=== PATIENT | male | born 1945 | race Caucasian/White ===

== ENCOUNTER 2024-01-30 19:17 | Inpatient (IN) | payer MEDICARE, OTHER ==
--- NOTE | 2024-01-30 19:27 | ERPHSYRPT ---
- History of Present Illness Time Seen by Provider: 01/30/24 19:27 Source: patient, family Exam Limitations: no limitations Physician History: This is a 78-year-old morbidly obese white male patient has chronic venous stasis disease of bilateral lower extremities with ulcerations present. Patient does see plant controls specialist Dr. Musa. Patient has multiple medical issues including CVA approxi-2 months ago, coronary disease, atrial fibrillation and is on Xarelto furosemide and spironolactone. Patient lives alone and has recently been intermittently confused. Patient has pain in both lower extremities but the right is worse than the left. He is not having any chest pain at this time. His room air oxygen saturation level is 99% and he has a normal blood pressure. Family is concerned that the patient is sundowning and/or has dementia. Patient does have multiple medical issues we will perform a workup. They would like him, if possible, to be placed in the hospital and worked up for possible [place] [facility] placement. He has had some abdominal pain as well and has a CT scan of the abdomen pelvis arranged on an outpatient basis next week. Patient typically has pressure dressings from bilateral feet proximally to below the knee. However, patient family member states that he takes them off and is noncompliant. Occurred: other (Chronic) Quality: aching, throbbing Severity of Pain-Max: mild (Moderate) Severity of Pain-Current: mild (Moderate) Lower Extremities Pain: leg: bilateral (Low the knee), foot: bilateral, ankle: bilateral Modifying Factors: Improves With: movement Allergies/Adverse Reactions: amiodarone Allergy (Verified 01/30/24 19:32) dronedarone Allergy (Verified 01/30/24 19:32) icosapent ethyl Allergy (Verified 01/30/24 19:32) nifedipine Allergy (Verified 01/30/24 19:32) [id number] Reductase Inhibitor Allergy (Verified 01/30/24 19:32) Home Medications: Acetaminophen 325 mg [Tylenol 325 mg] 650 mg PO Q4HPRN PRN 01/30/24 [History] Acetaminophen with Codeine [Acetaminophen-Cod #3 Tablet] 1 tab PO QID PRN 0 01/30/24 [History] Allopurinol 300 mg [Zyloprim 300 mg] 300 mg PO DAILY 01/30/24 [History] Aspirin 81 gm Chew [Baby Aspirin 81 mg Chew] 81 mg PO DAILY 01/30/24 [History] Cyanocobalamin (Vitamin B-12) [Vitamin B-12] 1,000 mcg SL DAILY 01/30/24 [History] Empagliflozin [Jardiance] 10 mg PO DAILY 01/30/24 [History] Levothyroxine Sodium 75 Mcg [Synthroid 75 Mcg] 75 mcg PO DAILY 01/30/24 [History] Metoprolol Succinate 50 mg [Toprol Xl 50 MG] 50 mg PO DAILY 01/30/24 [History] OLANZapine [Zyprexa] 5 mg PO HS 01/30/24 [History] Ondansetron [Ondansetron Odt ] 4 mg PO Q6H PRN 01/30/24 [History] Rivaroxaban [Xarelto] 20 mg PO DAILY 01/30/24 [History] Sacubitril/Valsartan [Entresto 49 mg-51 mg Tablet] 1 each PO DAILY 01/30/24 [History] Spironolactone 25 mg PO DAILY 01/30/24 [History] Torsemide 20 mg [Demadex 20 mg] 20 mg PO DAILY 01/30/24 [History] Travel Risk - International Travel Have you traveled outside of the country in past 3 weeks: No - Emerging Infectious Disease Are you exhibiting symptoms associated with any current EIDs: No - Review of Systems Constitutional: No Symptoms Eyes: No Symptoms Ears, Nose, & Throat: No Symptoms Respiratory: No Symptoms Cardiac: No Symptoms Abdominal/Gastrointestinal: No Symptoms Genitourinary Symptoms: No Symptoms Musculoskeletal: No Symptoms, Other (Chronic bilateral lower extremity venous stasis disease with ulcerations and pain) Skin: Other (See above) Neurological: No Symptoms Psychological: No Symptoms Endocrine: No Symptoms Hematologic/Lymphatic: No Symptoms Immunological/Allergic: No Symptoms All Other Systems: Reviewed and Negative - Past Medical History Pertinent Past Medical History: Yes - Nursing Vital Signs Nursing Vital Signs: Initial Vital Signs Temperature 96.9 F 01/30/24 19:33 Pulse Rate 130 H 01/30/24 19:33 Respiratory Rate 22 01/30/24 19:33 Blood Pressure 96/72 01/30/24 19:33 O2 Sat by Pulse Oximetry 98 01/30/24 19:33 Pain Scale Pain Intensity 7 - Physical Exam General Appearance: no apparent distress, alert, obese Eyes, Ears, Nose, Throat Exam: normal ENT inspection, moist mucous membranes Neck Exam: normal inspection, non-tender, supple, full range of motion Cardiovascular/Respiratory Exam: chest non-tender, no respiratory distress Gastrointestinal/Abdominal Exam: non-tender Back Exam: normal inspection, normal range of motion, No CVA tenderness, No vertebral tenderness Hips Exam: bilateral: normal range of motion, no evidence of injury Legs Exam: bilateral leg: soft tissue tenderness (Bilateral below the knee), swelling (Bilateral below the knee), other (Chronic venous stasis disease bilate rally with ulcerations) Knees Exam: bilateral knee: non-tender, normal inspection, normal range of motion, no evidence of injury Ankle Exam: bilateral ankle: soft tissue tenderness, swelling Foot Exam: bilateral foot: bone tenderness (Digit tenderness), soft tissue tenderness, swelling Neuro/Tendon Exam: normal motor functions, normal tendon functions, responds to pain, no evidence tendon injury Mental Status Exam: alert, oriented x 3, cooperative Skin Exam: other (The above) SpO2 Interpretation: normal O2 Delivery: Room Air - Course Nursing assessment & vital signs reviewed: Yes EKG Interpreted by Me: RATE (106), Other (Reticular paced complexes. There is nonspecific intraventricular conduction delay. QTc is 547. I do not appreciate any acute ischemia) Ordered Tests: Active Orders 24 hr Category Date Time Status Clean Catch Urine Specimen STAT Care 01/30/24 22:28 Active EKG-ER Only STAT Care 01/30/24 20:12 Active EKG-ER Only STAT Care 01/30/24 23:43 Active IV Insertion STAT Care 01/30/24 20:12 Active ABDOMEN AND PELVIS W/0 CONTRAS [CT] Stat Exams 01/30/24 21:14 Taken CHEST 1 VIEW (PORTABLE) Stat Exams 01/30/24 21:14 Taken CBC W DIFF Stat Lab 01/30/24 20:30 Completed CMP Stat Lab 01/30/24 20:30 Completed CULTURE,WOUND Stat Lab 01/30/24 20:42 Received Lactic Acid Stat Lab 01/30/24 20:25 Completed NT PRO BNPII Stat Lab 01/30/24 20:30 Completed TROPONIN Q4H Lab 01/30/24 20:30 Completed TROPONIN Q4H Lab 01/30/24 23:30 Completed TROPONIN Q4H Lab 01/31/24 04:15 Ordered TSH [TSH, 3RD Generation] Stat Lab 01/30/24 20:25 Completed Urine Triage Profile Stat Lab 01/30/24 22:58 Completed Medication Summary Discontinued Medications Generic Name Dose Route Start Last Admin Trade Name Genesis HOLLAND Reason Stop Dose Admin Acetaminophen 650 mg 01/30/24 23:26 01/30/24 23:30 Acetaminophen 325 Mg Tablet PO 01/30/24 23:27 650 mg STAT ONE Administration Acetaminophen Confirm 01/30/24 23:29 Acetaminophen 325 Mg Tablet Administered 01/30/24 23:30 Dose 650 mg .ROUTE .STK-MED ONE Bumetanide 1 mg 01/30/24 22:14 01/30/24 22:29 Bumetanide 0.25 Mg/Ml 4ml Vial IV 01/30/24 22:15 1 mg STAT ONE Administration Bumetanide Confirm 01/30/24 22:27 Bumetanide 0.25 Mg/Ml 4ml Vial Administered 01/30/24 22:28 Dose 1 mg .ROUTE .STK-MED ONE Ceftriaxone Sodium 1 gm in 100 mls @ 200 mls/hr 01/30/24 22:14 01/30/24 23:17 Rocephin 1 Gm / 100 Ml Nacl IV 01/30/24 22:43 Infused STAT ONE Infusion Ceftriaxone Sodium Confirm 01/30/24 22:28 Rocephin 1 Gm / 100 Ml Nacl Administered 01/30/24 22:29 Dose 1 gm in 100 mls @ ud IV .STK-MED ONE Metoprolol Tartrate 2.5 mg 01/30/24 22:35 01/30/24 22:48 Metoprolol Tartrate 5 Mg/5 Ml Vial IV 01/30/24 22:36 2.5 mg STAT ONE Administration Metoprolol Tartrate Confirm 01/30/24 22:44 Metoprolol Tartrate 5 Mg/5 Ml Vial Administered 01/30/24 22:45 Dose 5 mg IV .STK-MED ONE Ondansetron HCl 4 mg 01/30/24 20:12 01/30/24 20:37 Ondansetron Hcl 4 Mg/2 Ml Vial IV 01/30/24 20:13 4 mg STAT ONE Administration Ondansetron HCl Confirm 01/30/24 20:37 Ondansetron Hcl 4 Mg/2 Ml Vial Administered 01/30/24 20:38 Dose 4 mg .ROUTE .K-MED ONE Lab/Rad Data: Laboratory Result Diagrams 01/30/24 20:30 01/30/24 20:30 Laboratory Results 01/30/24 01/30/24 01/30/24 Range/Units 23:30 22:58 20:30 WBC (4.23-9.07) x10^3/uL RBC (4.63-6.08) x10^6/uL Hgb (13.7-17.5) g/dL Hct (40.1-51.0) % MCV (79.0-92.2) fL MCH (25.7-32.2) pg MCHC (32.3-36.5) g/dL RDW (11.6-14.4) % Plt Count (163-337) x10^3/uL MPV (9.4-12.4) fL Gran % (34.0-67.9) % Immature Gran % (Auto) (0.001-0.429) % Nucleat RBC Rel Count (0.00-0.2) % Eos # (Auto) (0.04-0.54) x10^3/uL Immature Gran # (Auto) (0.001-0.031) x10^3u/L Absolute Lymphs (auto) (1.32-3.57) x10^3/uL Absolute Monos (auto) (0.30-0.82) x10^3/uL Absolute Nucleated RBC (0.00-0.012) x10^3u/L Lymphocytes % (21.8-53.1) % Monocytes % (5.3-12.2) % Eosinophils % (0.8-7.0) % Basophils % (0.2-1.2) % Absolute Granulocytes (1.78-5.38) x10^3/uL Basophils # (0.01-0.08) x10^3/uL Sodium (135-145) mmol/L Potassium (3.5-5.1) mmol/L Chloride (98-107) mmol/L Carbon Dioxide (22-30) mmol/L Anion Gap (5-15) MEQ/L BUN (9-20) mg/dL Creatinine (0.66-1.25) mg/dL Estimated GFR ML/MIN Glucose (74-106) mg/dL Lactic Acid (0.4-2.0) Calcium (8.4-10.2) mg/dL Total Bilirubin (0.2-1.3) mg/dL AST (17-59) U/L ALT (0-50) U/L Alkaline Phosphatase (38-126) U/L Troponin I 0.072 H* 0.063 H* (0.000-0.033) ng/mL NT-Pro-B Natriuret Pep 4570 (<300) pg/mL Serum Total Protein (6.3-8.2) g/dL Albumin (3.5-5.0) g/dL Free T4 (0.78-2.19) ng/dL TSH 3rd Generation (0.470-4.680) mIU/L Urine Opiates Level NEGATIVE (NEGATIVE) Ur Methadone NEGATIVE (NEGATIVE) Urine Barbiturates NEGATIVE (NEGATIVE) Ur Phencyclidine (PCP) NEGATIVE (NEGATIVE) Urine Amphetamine NEGATIVE (NEGATIVE) U Benzodiazepine Level NEGATIVE (NEGATIVE) Urine Cocaine NEGATIVE (NEGATIVE) Urine Marijuana (THC) NEGATIVE (NEGATIVE) Slides for Path Review 01/30/24 01/30/24 01/30/24 Range/Units 20:30 20:30 20:25 WBC 5.4 (4.23-9.07) x10^3/uL RBC 5.34 (4.63-6.08) x10^6/uL Hgb 14.0 (13.7-17.5) g/dL Hct 44.9 (40.1-51.0) % MCV 84.1 (79.0-92.2) fL MCH 26.2 (25.7-32.2) pg MCHC 31.2 L (32.3-36.5) g/dL RDW 17.0 H (11.6-14.4) % Plt Count 139 L (163-337) x10^3/uL MPV 10.5 (9.4-12.4) fL Gran % 77.9 H (34.0-67.9) % Immature Gran % (Auto) 0.4 (0.001-0.429) % Nucleat RBC Rel Count 0.0 (0.00-0.2) % Eos # (Auto) 0.13 (0.04-0.54) x10^3/uL Immature Gran # (Auto) 0.02 (0.001-0.031) x10^3u/L Absolute Lymphs (auto) 0.49 L (1.32-3.57) x10^3/uL Absolute Monos (auto) 0.52 (0.30-0.82) x10^3/uL Absolute Nucleated RBC 0.00 (0.00-0.012) x10^3u/L Lymphocytes % 9.0 L (21.8-53.1) % Monocytes % 9.6 (5.3-12.2) % Eosinophils % 2.4 (0.8-7.0) % Basophils % 0.7 (0.2-1.2) % Absolute Granulocytes 4.22 (1.78-5.38) x10^3/uL Basophils # 0.04 (0.01-0.08) x10^3/uL Sodium 141 (135-145) mmol/L Potassium 4.7 (3.5-5.1) mmol/L Chloride 107 (98-107) mmol/L Carbon Dioxide 28 (22-30) mmol/L Anion Gap 11.2 (5-15) MEQ/L BUN 28 H (9-20) mg/dL Creatinine 1.45 H (0.66-1.25) mg/dL Estimated GFR 49.6 ML/MIN Glucose 94 (74-106) mg/dL Lactic Acid (0.4-2.0) Calcium 9.1 (8.4-10.2) mg/dL Total Bilirubin 1.40 H (0.2-1.3) mg/dL AST 38 (17-59) U/L ALT 26 (0-50) U/L Alkaline Phosphatase 101 (38-126) U/L Troponin I (0.000-0.033) ng/mL NT-Pro-B Natriuret Pep (<300) pg/mL Serum Total Protein 7.0 (6.3-8.2) g/dL Albumin 3.8 (3.5-5.0) g/dL Free T4 1.03 (0.78-2.19) ng/dL TSH 3rd Generation (0.470-4.680) mIU/L Urine Opiates Level (NEGATIVE) Ur Methadone (NEGATIVE) Urine Barbiturates (NEGATIVE) Ur Phencyclidine (PCP) (NEGATIVE) Urine Amphetamine (NEGATIVE) U Benzodiazepine Level (NEGATIVE) Urine Cocaine (NEGATIVE) Urine Marijuana (THC) (NEGATIVE) Slides for Path Review YES 01/30/24 01/30/24 Range/Units 20:25 20:25 WBC (4.23-9.07) x10^3/uL RBC (4.63-6.08) x10^6/uL Hgb (13.7-17.5) g/dL Hct (40.1-51.0) % MCV (79.0-92.2) fL MCH (25.7-32.2) pg MCHC (32.3-36.5) g/dL RDW (11.6-14.4) % Plt Count (163-337) x10^3/uL MPV (9.4-12.4) fL Gran % (34.0-67.9) % Immature Gran % (Auto) (0.001-0.429) % Nucleat RBC Rel Count (0.00-0.2) % Eos # (Auto) (0.04-0.54) x10^3/uL Immature Gran # (Auto) (0.001-0.031) x10^3u/L Absolute Lymphs (auto) (1.32-3.57) x10^3/uL Absolute Monos (auto) (0.30-0.82) x10^3/uL Absolute Nucleated RBC (0.00-0.012) x10^3u/L Lymphocytes % (21.8-53.1) % Monocytes % (5.3-12.2) % Eosinophils % (0.8-7.0) % Basophils % (0.2-1.2) % Absolute Granulocytes (1.78-5.38) x10^3/uL Basophils # (0.01-0.08) x10^3/uL Sodium (135-145) mmol/L Potassium (3.5-5.1) mmol/L Chloride (98-107) mmol/L Carbon Dioxide (22-30) mmol/L Anion Gap (5-15) MEQ/L BUN (9-20) mg/dL Creatinine (0.66-1.25) mg/dL Estimated GFR ML/MIN Glucose (74-106) mg/dL Lactic Acid 1.6 (0.4-2.0) Calcium (8.4-10.2) mg/dL Total Bilirubin (0.2-1.3) mg/dL AST (17-59) U/L ALT (0-50) U/L Alkaline Phosphatase (38-126) U/L Troponin I (0.000-0.033) ng/mL NT-Pro-B Natriuret Pep (<300) pg/mL Serum Total Protein (6.3-8.2) g/dL Albumin (3.5-5.0) g/dL Free T4 (0.78-2.19) ng/dL TSH 3rd Generation 7.834 H (0.470-4.680) mIU/L Urine Opiates Level (NEGATIVE) Ur Methadone (NEGATIVE) Urine Barbiturates (NEGATIVE) Ur Phencyclidine (PCP) (NEGATIVE) Urine Amphetamine (NEGATIVE) U Benzodiazepine Level (NEGATIVE) Urine Cocaine (NEGATIVE) Urine Marijuana (THC) (NEGATIVE) Slides for Path Review - Progress Progress: improved, pain not gone completely Progress Note: 01/30/24 20:23 My medical decision making and the assignment of moderate to high complexity is based on review of the patient's past medical history, review of the patient's medication list, reviewed patient drug allergy list, history present illness and physical findings on examination. The workup in this patient includes placement of intravenous line, chest x-ray, CT scan of the abdomen pelvis, CBC, CMP, blood cultures, wound cultures, twelve-lead EKG, BNP, troponin level. Differential diagnosis includes but is not limited to chronic venous stasis disease with ulcerations, bilateral lower extremity cellulitis, CHF 01/30/24 22:36 I interpreted the patient's laboratory data results. The patient has significant elevated BNP of over 4500. He likely has CHF. His troponin level is minimally elevated at 0.063 and likely secondary to right heart strain secondary to CHF. The preliminary chest x-ray report was interpreted by me. There is evidence of increased vascular markings as well as cardiomegaly consistent with CHF. CT scan of the abdomen pelvis without contrast was performed and was interpreted by the radiologist. I reviewed the impression. The impression states cardiomegaly. Bilateral pleural effusions with diffuse anasarca favoring CHF. Small perihepatic fluid which may be related to the CHF. Sigmoid diverticulosis and multilevel DDD 01/30/24 23:55 The repeat, second twelve-lead EKG was performed on 01/30/2024 4809. The heart rate is 103 bpm ventricular paced complexes. QTc is 532. There is no evidence of any acute ischemia. Discussed with DrMiko: Ladi Counseled pt/family regarding: lab results, diagnosis Medical Desision Making - Discussion of managment Care discussed with:: hospitalist Reviewed:: Test results, Need for additional workup Agreed on:: Treatment plan, decision to admit Will see patient: in hospital - Diagnostic Testing Diagnostic test were ordered, analyzed, and reviewed by me: Yes Radiological Interpretation: Reviewed by me, Teleradiologist Report - Risk of complications The pt has a high risk of morbidity or mortality based on: Decision regarding hospitilization or escalation of hosp level of care - Departure Departure Disposition: In-patient Admission Clinical Impression: CHF exacerbation, Chronic cutaneous venous stasis ulcer, Shortness of breath, Elevated troponin Condition: Fair Critical Care Time: No Referrals: MIGEL SYED [Primary Care Provider] - Follow up/PCP as directed Instructions: Heart Failure
[2024-01-30 20:35] LABS: Absolute Neutrophil Ct (ANC) 4.22 x10^3/uL (1.78-5.38); BASOPHIL % 0.7 % (0.2-1.2); Basophil (Absolute #) 0.04 x10^3/uL (0.01-0.08); Eosinophil % 2.4 % (0.8-7.0); Eosinophil (Absolute #) 0.13 x10^3/uL (0.04-0.54); Hematocrit 44.9 % (40.1-51.0); IMMATURE GRAN # 0.02 x10^3u/L (0.001-0.031); IMMATURE GRAN % 0.4 % (0.001-0.429); Lymphocyte (Absolute #) 0.49 x10^3/uL (1.32-3.57); Mean Cell Volume 84.1 fL (79.0-92.2); Mean Corpuscular Hemoglobin 26.2 pg (25.7-32.2); Mean Corpuscular Hgb Concent. 31.2 g/dL (32.3-36.5); Mean Platelet Volume 10.5 fL (9.4-12.4); Monocyte (Absolute #) 0.52 x10^3/uL (0.30-0.82); Monocytes % 9.6 % (5.3-12.2); Neutrophil % 77.9 % (34.0-67.9); Platelet Count 139 x10^3/uL (163-337); Red Blood Count 5.34 x10^6/uL (4.63-6.08); White Blood Count 5.4 x10^3/uL (4.23-9.07)
[2024-01-30] MEDS: Zofran 4 MG/2 ML VIAL IV ONE (20:37)
[2024-01-30] MEDS ORDERED: Zofran 4 MG/2 ML VIAL ONE (20:37)
[2024-01-30 20:50] LABS: ALBUMIN 3.8 g/dL (3.5-5.0); ANION GAP 11.2 MEQ/L (5-15); BILIRUBIN,TOTAL 1.4 mg/dL (0.2-1.3); Calcium 9.1 mg/dL (8.4-10.2); Creatinine 1 1.45 mg/dL (0.66-1.25); EST GLOMERULAR FILTRATION RATE 49.6 ML/MIN; Potassium 4.7 mmol/L (3.5-5.1)
[2024-01-30 21:23] LABS: TROPONIN 0.063 ng/mL (0.000-0.033)
[2024-01-30 21:35] LABS: Slide Review 1 YES
[2024-01-30] MEDS ORDERED: BUMEX 1 MG ONE (22:27)
[2024-01-30] MEDS ORDERED: ROCEPHIN 1 GM / 100 ML NaCl 1 GM/100 ML IVPB IV ONE (22:28)
[2024-01-30] MEDS: BUMEX 1 MG IV ONE (22:29)
[2024-01-30] MEDS: ROCEPHIN 1 GM / 100 ML NaCl 1 GM/100 ML IVPB IV ONE (22:30)
[2024-01-30] MEDS ORDERED: LOPRESSOR INJECTION IV ONE (22:44)
[2024-01-30] MEDS: LOPRESSOR INJECTION IV ONE (22:48)
[2024-01-30] MEDS ORDERED: TYLENOL 325 MG ONE (23:29)
[2024-01-30] MEDS: TYLENOL 325 MG PO ONE (23:30)
[2024-01-30 23:34] LABS: Amphetamine,Urine NEGATIVE (NEGATIVE); Barbiturate,Urine NEGATIVE (NEGATIVE); Benzodiazepine,Urine NEGATIVE (NEGATIVE); Cocaine,Urine NEGATIVE (NEGATIVE); Methadone,Urine NEGATIVE (NEGATIVE); Opiate,Urine NEGATIVE (NEGATIVE); PCP,Urine NEGATIVE (NEGATIVE); THC,Urine NEGATIVE (NEGATIVE)
--- NOTE | 2024-01-31 03:08 | PCM.HP ---
History of Present Illness - Chief Complaint Chief Complaint: shortness of breath, leg swelling Date: 01/31/24 History of Present Illness: 78 y/o M with h/o HFrEF, paroxysmal A-fib, recent CVA, and venous stasis dermatitis with ulcers, presents with worsening dyspnea and leg edema. Patient states he was diagnosed with idiopathic cardiomyopathy in 1999, with an EF as low as 5% at one point and was evaluated for heart transplant, although his EF has recovered somewhat from that point. Today he presents complaining of one week of progressive dyspnea, associated with worsening leg edema causing more serous weeping from her legs, as well as associated orthopnea and early satiety with mild constant nausea. He denies PND, chest pain, numbness, diaphoresis, fevers, sore throat, or dysuria. Patient states has been compliant with medications and diet. However, patient lives alone, and was brought in after family visited and noted that patient was not doing well, with some signs of cognitive impairment. They brought in his medication bottles, which showed that though there were prescribed three months ago they were still almost full. He was prescribed Keflex by his covering and lining supervisor 10 days ago but only one pill was used. He also had an Roma boot placed but his covering and lining supervisor last week, but the patient cut it off himself. His family notes that he has been more forgetful, and they are interested in looking for more support for the patient, including possible placement. - Review of Systems Constitutional: No Fever, No Fatigue, No Weakness Ears, Nose, & Throat: No Throat Pain Respiratory: Orthopnea, Short Of Breath, No Cough Cardiac: Edema, Orthopnea, No Chest Pain, No Palpitations, No Syncope Abdominal/Gastrointestinal: Nausea, No Abdominal Pain, No Vomiting, No Diarrhea Genitourinary Symptoms: No Dysuria, No Frequency Skin: Rash, Other (serous drainage from legs, bilateral leg erythema) Medications & Allergies Home Medications: Home Medication List Acetaminophen 325 mg [Tylenol 325 mg] 650 mg PO Q4HPRN PRN 01/30/24 [ History Confirmed 01/30/24] Acetaminophen with Codeine [Acetaminophen-Cod #3 Tablet] 1 tab PO QID PRN 01/30/24 [History Confirmed 01/30/24] Allopurinol 300 mg [Zyloprim 300 mg] 300 mg PO DAILY 01/30/24 [History Confirmed 01/30/24] Aspirin 81 gm Chew [Baby Aspirin 81 mg Chew] 81 mg PO DAILY 01/30/24 [History Confirmed 01/30/24] Cyanocobalamin (Vitamin B-12) [Vitamin B-12] 1,000 mcg SL DAILY 01/30/24 [History Confirmed 01/30/24] Empagliflozin [Jardiance] 10 mg PO DAILY 01/30/24 [History Confirmed 01/30/24] Levothyroxine Sodium 75 Mcg [Synthroid 75 Mcg] 75 mcg PO DAILY 01/30/24 [History Confirmed 01/30/24] Metoprolol Succinate 50 mg [Toprol Xl 50 MG] 50 mg PO DAILY 01/30/24 [History Confirmed 01/30/24] OLANZapine [Zyprexa] 5 mg PO HS 01/30/24 [History Confirmed 01/30/24] Ondansetron [Ondansetron Odt ] 4 mg PO Q6H PRN 01/30/24 [History Confirmed 01/30/24] Rivaroxaban [Xarelto] 20 mg PO DAILY 01/30/24 [History Confirmed 01/30/24] Sacubitril/Valsartan [Entresto 49 mg-51 mg Tablet] 1 each PO DAILY 01/30/24 [History Confirmed 01/30/24] Spironolactone 25 mg PO DAILY 01/30/24 [History Confirmed 01/30/24] Torsemide 20 mg [Demadex 20 mg] 20 mg PO DAILY 01/30/24 [History Confirmed 01/30/24] Allergies/Adverse Reactions: Allergies Allergy/AdvReac Type Severity Reaction Status Date / Time amiodarone Allergy Verified 01/30/24 19:32 dronedarone Allergy Verified 01/30/24 19:32 icosapent ethyl Allergy Verified 01/30/24 19:32 nifedipine Allergy Verified 01/30/24 19:32 [id number] Reductase Allergy Verified 01/30/24 19:32 Inhibitor - Past Medical History Past Medical History: Yes Neurological History: Migraines, Stroke ENT History: No Pertinent History Cardiac History: Arrhythmia, Congestive Heart Failure, Deep Vein Thrombosis, High Cholesterol, Hypertension Respiratory History: CHF, Pneumonia Endocrine Medical History: Diabetes Type II, Hypothyroidism Musculoskelatal History: Arthritis GI Medical History: GERD, Hernia History: No Pertinent History Pyscho-Social History: Anxiety, Depression Male Reproductive Disorders: Prostate Problems Comment: cml leukemia, edopathic myocardia, gout, restless leg sydrome - Past Surgical History Past Surgical History: Yes Neuro Surgical History: No Pertinent History Cardiac History: Cardiac Catheterization, Internal Defibrillator, Pacemaker Respiratory Surgery: No Pertinent History GI Surgical History: Hernia Repair Genitourinary Surgical Hx: No Pertinent History Musculskeletal Surgical Hx: Orthopedic Surgery Male Surgical History: No Pertinent History Other Surgical History: carpal tunnel, cardiac ablation, left cubital tunnel release and ulnar nerve at wrist, rt total knee Significant Family History: no pertinent family hx - Social History Smoking Status: Never smoker Exposure to second hand smoke: No Alcohol: None Drug Use: none - Social Determinants of Health Will the patient participate in the screening: Yes Do you worry about a steady place to live?: No Do you have any problems with any of the following?: No known problems In the past 12 months,have you had to go without utilities?: No Have you or anyone in your house had to go without enough: No Transportation Issues: No Has anyone in your support network made you feel unsafe?: No - Physical Exam Vital Signs: Vital Signs - 24 hr Temp Pulse Resp BP BP Pulse Ox 01/31/24 02:47 97.1 F 54 L 20 136/84 97 01/31/24 00:03 95 H 22 100/67 95 01/31/24 00:01 113 H 17 83/71 96 01/30/24 23:43 105 H 23 112/81 96 01/30/24 23:42 104 H 19 94 L 01/30/24 23:40 105 H 14 01/30/24 23:31 110 H 18 01/30/24 23:06 106 H 22 108/76 96 01/30/24 23:02 109 H 18 01/30/24 22:30 101 H 15 118/83 97 01/30/24 22:00 120 H 20 119/59 97 01/30/24 21:31 115 H 24 111/79 100 01/30/24 21:10 125 H 24 109/78 99 01/30/24 20:50 120 H 15 99 01/30/24 20:40 115 H 24 95 01/30/24 20:31 127 H 14 95 01/30/24 20:00 110 H 21 127/82 97 01/30/24 19:33 96.9 F 130 H 22 96/72 98 GENERAL: Sitting up in chair in no acute distress CV: regular rate and rhythm, no murmurs, pitting edema above knees bilaterally PULM: Clear to auscultation bilaterally, no work of breathing, on room air ABD: distended but non-tender SKIN: bilateral distal legs with erythema, with serous diffuse weeping, and left perez with shallow clean-based ulcer. Results - Labs Lab/Micro Results: Lab Results-Last 24 Hours 01/30/24 01/30/24 01/30/24 Range/Units 20:25 20:25 20:25 WBC (4.23-9.07) x10^3/uL RBC (4.63-6.08) x10^6/uL Hgb (13.7-17.5) g/dL Hct (40.1-51.0) % MCV (79.0-92.2) fL MCH (25.7-32.2) pg MCHC (32.3-36.5) g/dL RDW (11.6-14.4) % Plt Count (163-337) x10^3/uL MPV (9.4-12.4) fL Gran % (34.0-67.9) % Immature Gran % (Auto) (0.001-0.429) % Nucleat RBC Rel Count (0.00-0.2) % Eos # (Auto) (0.04-0.54) x10^3/uL Immature Gran # (Auto) (0.001-0.031) x10^3u/L Absolute Lymphs (auto) (1.32-3.57) x10^3/uL Absolute Monos (auto) (0.30-0.82) x10^3/uL Absolute Nucleated RBC (0.00-0.012) x10^3u/L Lymphocytes % (21.8-53.1) % Monocytes % (5.3-12.2) % Eosinophils % (0.8-7.0) % Basophils % (0.2-1.2) % Absolute Granulocytes (1.78-5.38) x10^3/uL Basophils # (0.01-0.08) x10^3/uL Sodium (135-145) mmol/L Potassium (3.5-5.1) mmol/L Chloride (98-107) mmol/L Carbon Dioxide (22-30) mmol/L Anion Gap (5-15) MEQ/L BUN (9-20) mg/dL Creatinine (0.66-1.25) mg/dL Estimated GFR ML/MIN Glucose (74-106) mg/dL Lactic Acid 1.6 (0.4-2.0) Calcium (8.4-10.2) mg/dL Total Bilirubin (0.2-1.3) mg/dL AST (17-59) U/L ALT (0-50) U/L Alkaline Phosphatase (38-126) U/L Troponin I (0.000-0.033) ng/mL NT-Pro-B Natriuret Pep (<300) pg/mL Serum Total Protein (6.3-8.2) g/dL Albumin (3.5-5.0) g/dL Free T4 1.03 (0.78-2.19) ng/dL TSH 3rd Generation 7.834 H (0.470-4.680) mIU/L Urine Opiates Level (NEGATIVE) Ur Methadone (NEGATIVE) Urine Barbiturates (NEGATIVE) Ur Phencyclidine (PCP) (NEGATIVE) Urine Amphetamine (NEGATIVE) U Benzodiazepine Level (NEGATIVE) Urine Cocaine (NEGATIVE) Urine Marijuana (THC) (NEGATIVE) Slides for Path Review 01/30/24 01/30/24 01/30/24 Range/Units 20:30 20:30 20:30 WBC 5.4 (4.23-9.07) x10^3/uL RBC 5.34 (4.63-6.08) x10^6/uL Hgb 14.0 (13.7-17.5) g/dL Hct 44.9 (40.1-51.0) % MCV 84.1 (79.0-92.2) fL MCH 26.2 (25.7-32.2) pg MCHC 31.2 L (32.3-36.5) g/dL RDW 17.0 H (11.6-14.4) % Plt Count 139 L (163-337) x10^3/uL MPV 10.5 (9.4-12.4) fL Gran % 77.9 H (34.0-67.9) % Immature Gran % (Auto) 0.4 (0.001-0.429) % Nucleat RBC Rel Count 0.0 (0.00-0.2) % Eos # (Auto) 0.13 (0.04-0.54) x10^3/uL Immature Gran # (Auto) 0.02 (0.001-0.031) x10^3u/L Absolute Lymphs (auto) 0.49 L (1.32-3.57) x10^3/uL Absolute Monos (auto) 0.52 (0.30-0.82) x10^3/uL Absolute Nucleated RBC 0.00 (0.00-0.012) x10^3u/L Lymphocytes % 9.0 L (21.8-53.1) % Monocytes % 9.6 (5.3-12.2) % Eosinophils % 2.4 (0.8-7.0) % Basophils % 0.7 (0.2-1.2) % Absolute Granulocytes 4.22 (1.78-5.38) x10^3/uL Basophils # 0.04 (0.01-0.08) x10^3/uL Sodium 141 (135-145) mmol/L Potassium 4.7 (3.5-5.1) mmol/L Chloride 107 (98-107) mmol/L Carbon Dioxide 28 (22-30) mmol/L Anion Gap 11.2 (5-15) MEQ/L BUN 28 H (9-20) mg/dL Creatinine 1.45 H (0.66-1.25) mg/dL Estimated GFR 49.6 ML/MIN Glucose 94 (74-106) mg/dL Lactic Acid (0.4-2.0) Calcium 9.1 (8.4-10.2) mg/dL Total Bilirubin 1.40 H (0.2-1.3) mg/dL AST 38 (17-59) U/L ALT 26 (0-50) U/L Alkaline Phosphatase 101 (38-126) U/L Troponin I 0.063 H* (0.000-0.033) ng/mL NT-Pro-B Natriuret Pep 4570 (<300) pg/mL Serum Total Protein 7.0 (6.3-8.2) g/dL Albumin 3.8 (3.5-5.0) g/dL Free T4 (0.78-2.19) ng/dL TSH 3rd Generation (0.470-4.680) mIU/L Urine Opiates Level (NEGATIVE) Ur Methadone (NEGATIVE) Urine Barbiturates (NEGATIVE) Ur Phencyclidine (PCP) (NEGATIVE) Urine Amphetamine (NEGATIVE) U Benzodiazepine Level (NEGATIVE) Urine Cocaine (NEGATIVE) Urine Marijuana (THC) (NEGATIVE) Slides for Path Review YES 01/30/24 01/30/24 Range/Units 22:58 23:30 WBC (4.23-9.07) x10^3/uL RBC (4.63-6.08) x10^6/uL Hgb (13.7-17.5) g/dL Hct (40.1-51.0) % MCV (79.0-92.2) fL MCH (25.7-32.2) pg MCHC (32.3-36.5) g/dL RDW (11.6-14.4) % Plt Count (163-337) x10^3/uL MPV (9.4-12.4) fL Gran % (34.0-67.9) % Immature Gran % (Auto) (0.001-0.429) % Nucleat RBC Rel Count (0.00-0.2) % Eos # (Auto) (0.04-0.54) x10^3/uL Immature Gran # (Auto) (0.001-0.031) x10^3u/L Absolute Lymphs (auto) (1.32-3.57) x10^3/uL Absolute Monos (auto) (0.30-0.82) x10^3/uL Absolute Nucleated RBC (0.00-0.012) x10^3u/L Lymphocytes % (21.8-53.1) % Monocytes % (5.3-12.2) % Eosinophils % (0.8-7.0) % Basophils % (0.2-1.2) % Absolute Granulocytes (1.78-5.38) x10^3/uL Basophils # (0.01-0.08) x10^3/uL Sodium (135-145) mmol/L Potassium (3.5-5.1) mmol/L Chloride (98-107) mmol/L Carbon Dioxide (22-30) mmol/L Anion Gap (5-15) MEQ/L BUN (9-20) mg/dL Creatinine (0.66-1.25) mg/dL Estimated GFR ML/MIN Glucose (74-106) mg/dL Lactic Acid (0.4-2.0) Calcium (8.4-10.2) mg/dL Total Bilirubin (0.2-1.3) mg/dL AST (17-59) U/L ALT (0-50) U/L Alkaline Phosphatase (38-126) U/L Troponin I 0.072 H* (0.000-0.033) ng/mL NT-Pro-B Natriuret Pep (<300) pg/mL Serum Total Protein (6.3-8.2) g/dL Albumin (3.5-5.0) g/dL Free T4 (0.78-2.19) ng/dL TSH 3rd Generation (0.470-4.680) mIU/L Urine Opiates Level NEGATIVE (NEGATIVE) Ur Methadone NEGATIVE (NEGATIVE) Urine Barbiturates NEGATIVE (NEGATIVE) Ur Phencyclidine (PCP) NEGATIVE (NEGATIVE) Urine Amphetamine NEGATIVE (NEGATIVE) U Benzodiazepine Level NEGATIVE (NEGATIVE) Urine Cocaine NEGATIVE (NEGATIVE) Urine Marijuana (THC) NEGATIVE (NEGATIVE) Slides for Path Review - Radiology Impressions Radiology Exams & Impressions: Radiology Procedures Category Date Time Status ABDOMEN AND PELVIS W/0 CONTRAS [CT] Stat Exams 01/30/24 21:14 Taken CHEST 1 VIEW (PORTABLE) Stat Exams 01/30/24 21:14 Taken CXR - diffuse pulmonary edema with cephalization and interstitial infiltrates (images personally reviewed) CT Abd/pelvis - diffuse anasarca, bilateral pleural effusions (per verbal report from ED physician; report not available in system yet) - Other Procedures and Tests Respiratory Therapy 01/31/24 00:38 EKG REPEAT IN AM Assessment/Plan (1) Acute on chronic systolic heart failure Current Visit: Yes Status: Acute Assessment & Plan: 78 y/o M with h/o HFrEF, CVA, A-fib, and possibly CKD, here with acute on chronic systolic heart failure. ## Acute on chronic systolic heart failure - with progressive edema, dyspnea, orthopnea, elevated BNP, and pulm edema on CXR. There is no echo in our system as this is patient's first admission here, but appears he is at best HFrecEF, but probably truly HFrEF. It appears he has been non-compliant with his medication regimen at home, which includes torsemide 20 daily (equivalent to furosemide 40 daily). Will plan for aggressive diuresis; the DOSE trial used 2.5 times home lasix dose as IV dose, with no clinically significant impairment in renal function but quicker time to clinical improvement. - start Lasix 80 mg IV BID - monitor K, Mg - place on telemetry - resume home Toprol XL 50, Entresto 49/51, spironolactone 25, Jardaicne 10 - no further IV metoprolol (given in ED , presumably for tachycardia, but that is likely from the CHF exacerbation, and IV BB not beneficial in acute heart failure) ## Elevated troponin - almost certainly demand ischemia from CHF exacerbation above rather than true NSTEMI. Initial Tn essentially flat at 0.06 -> 0.07. Troponin level is also over-amplified by his CKD. Patient has no chest pain, no signs of ACS. - repeat one more troponin - continue to monitor on telemetry ## KYUNG vs CKD3 - no baseline Cr for comparison (the only other Cr in system is from earlier today, when patient was seeing Dr. Qiu for EGD/colonoscopy.) BUN is not significantly elevated, suggesting more chronic condition, although it would not be surprising to have some KYUNG from renal venous congestion with his CHF exacerbation. - follow Cr while diuresing aggressively - continue Entresto, SGLT2-inhibitor, both of which also improve long-term renal outcomes ## Venous stasis dermatitis - patient has non-continuous bilateral erythema with only serous drainage. No purulent drainage noted. This is more consistent with stasis dermatitis than an infectious cellulitis. - diurese as above - Podiatry consulted, as patient previously had Roma boot that was removed - will have wound care look at left anterior perez wound as well ## A-fib - paroxysmal, currently rate-controlled, to too low after aggressive IV metoprolol dosing in ED. - Restart Toprol XL 100 - continue Xarelto 20 daily ## Cognitive impairment, social situation - family concerned for new onset dementia, and patient's inability to care for himself at home, especially with his poor compliance with medications and treatments. - reach out to family in morning for more collateral information - consult case management to discuss care options. ## Hypothyroidism - continue home Synthroid 75 Code status: Full code Prophylaxis: Xarelto Diet: 2 gm Na Dispo: Admit to inpatient for CHF exacerbation, expected LOS 48-72 hours Code(s): I50.23 - ACUTE ON CHRONIC SYSTOLIC (CONGESTIVE) HEART FAILURE Telemedicine Encounter - Telemedicine Encounter Telemedicine Encounter: "The entirety of this encounter was performed via Telemedicine" This visit was performed using real-time audio and video connection between my location and thepatients locationwith the assistance of a surrogateat the patients location. Written or verbal consent was obtained from the patient/guardian to perform this visit usings[employer] Dat[employer]medicine technology. Any patient questions regarding the telemedicine interaction were answered.
[2024-01-31] MEDS: Zofran 4 MG/2 ML VIAL IV PRN (03:17)
[2024-01-31] MEDS: TYLENOL 325 MG PO PRN (03:21)
[2024-01-31 05:06] LABS: Absolute Neutrophil Ct (ANC) 5.13 x10^3/uL (1.78-5.38); BASOPHIL % 0.6 % (0.2-1.2); Basophil (Absolute #) 0.04 x10^3/uL (0.01-0.08); Eosinophil % 1.9 % (0.8-7.0); Eosinophil (Absolute #) 0.12 x10^3/uL (0.04-0.54); Hematocrit 45.2 % (40.1-51.0); IMMATURE GRAN # 0.02 x10^3u/L (0.001-0.031); IMMATURE GRAN % 0.3 % (0.001-0.429); Lymphocyte (Absolute #) 0.48 x10^3/uL (1.32-3.57); Lymphocytes % 7.6 % (21.8-53.1); Mean Cell Volume 84.8 fL (79.0-92.2); Mean Corpuscular Hemoglobin 26.3 pg (25.7-32.2); Mean Platelet Volume 10.4 fL (9.4-12.4); Monocyte (Absolute #) 0.53 x10^3/uL (0.30-0.82); Monocytes % 8.4 % (5.3-12.2); Neutrophil % 81.2 % (34.0-67.9); Platelet Count 131 x10^3/uL (163-337); Red Blood Count 5.33 x10^6/uL (4.63-6.08); Red Cell Distribution Width 17.5 % (11.6-14.4); White Blood Count 6.3 x10^3/uL (4.23-9.07)
[2024-01-31 05:23] LABS: ALBUMIN 3.7 g/dL (3.5-5.0); ANION GAP 13.4 MEQ/L (5-15); BILIRUBIN,TOTAL 1.5 mg/dL (0.2-1.3); Creatinine 1 1.48 mg/dL (0.66-1.25); EST GLOMERULAR FILTRATION RATE 48.4 ML/MIN; MAGNESIUM 2.4 mg/dL (1.6-2.3); Potassium 4.2 mmol/L (3.5-5.1); Total Protein 6.9 g/dL (6.3-8.2)
[2024-01-31] MEDS ORDERED: Compazine 10 MG/2 ML IV PRN (06:35)
[2024-01-31] MEDS: ULTRAM 50 MG PO PRN (06:41)
[2024-01-31 07:10] LABS: Slide Review 1 YES
--- NOTE | 2024-01-31 09:04 | XRAY ---
Indication: Short of breath. History CHF. Comparison: None Portable chest demonstrates cardiomegaly with left dual-lead pacemaker. Also small bibasilar effusions. Upper lungs clear. Bony thorax intact with osteopenia and mild degenerative changes. Impression: Cardiomegaly with bibasilar effusions favoring cardiac decompensation/CHF. Superimposed pneumonia not completely excluded.
--- NOTE | 2024-01-31 09:08 | XRAY ---
Indication: Abdominal pain. Nausea. History CHF. Multiple contiguous axial images obtained through the abdomen and pelvis without contrast. Comparison: None Lung bases demonstrates incompletely visualized cardiomegaly, pulmonary edema, moderate right/mild left effusions, and diffuse anasarca favoring cardiac decompensation/CHF. Noncontrasted stomach and bowel loops appear nonobstructed and sigmoid diverticulosis. Small abdominal free fluid, largest perihepatic. No walled off fluid collection or free air. Right kidney demonstrates 2 exophytic cysts, largest 3.3 cm. Remaining liver, gallbladder, pancreas, spleen, adrenal glands, kidneys, ureters, and bladder are unremarkable for noncontrast exam. Moderate scattered aortoiliac calcifications without AAA. Osseous structures intact with osteopenia, moderate/advanced multilevel thoracolumbar degenerative spondylosis, moderate lumbar levorotoscoliosis centered at L3, and mild degenerative changes both hips. Impression: 1. Cardiomegaly, pulmonary edema, bilateral effusions, and diffuse anasarca favoring cardiac decompensation/CHF. Small abdominal ascites may be related. 2. Chronic findings including sigmoid diverticulosis, right renal cysts, arteriosclerotic disease, and chronic bony findings.
[2024-01-31] MEDS: ZYLOPRIM 300 MG PO SCH (09:51)
[2024-01-31] MEDS: SYNTHROID 75 MCG PO SCH (09:51)
[2024-01-31] MEDS: XARELTO 10 MG TABLET PO SCH (09:51)
[2024-01-31] MEDS: ENTRESTO 49 MG-51 MG TABLET PO SCH (09:51)
[2024-01-31] MEDS: ECOTRIN 81 MG PO SCH (09:51)
[2024-01-31] MEDS: Furosemide 100mg/10 ml Vial IV SCH (09:51)
[2024-01-31] MEDS: Toprol Xl 50 MG PO SCH (09:51)
[2024-01-31] MEDS: Aldactone 25 MG PO SCH (09:51)
[2024-01-31] MEDS: JARDIANCE PO SCH (09:52)
[2024-01-31] MEDS ORDERED: NON-FORMULARY ITEM (Rivaroxaban [Xarelto] 20 MG Tablet) PO SCH (10:00)
[2024-01-31] MEDS ORDERED: BUMEX 1 MG IV SCH (10:00)
[2024-01-31] MEDS ORDERED: Lasix 40 MG/4 ML IV SCH (10:00)
[2024-01-31] MEDS ORDERED: BABY ASPIRIN 81 MG CHEW PO SCH (10:00)
--- NOTE | 2024-01-31 12:45 | XRAY ---
Indication: Venous stasis ulcers. Two-dimensional sonogram and color Doppler imaging major venous vessels left and right leg performed. Comparison: None Access Clinician notes limited exam due to patient unable to lay flat or tolerate sonogram. No obvious thrombus seen in the examined deep venous vessels left and right leg including greater saphenous vein. Veins demonstrate normal compressibility. Normal venous waveforms with and without augmentation. Impression: Limited sonogram as detailed. Left and right legs grossly negative for DVT.
[2024-01-31] MEDS: zyPREXA 5MG TABLET PO SCH (21:31)
[2024-01-31] MEDS ORDERED: Sodium Chloride 0.9% 100 ML ONE (23:09)
[2024-01-31] MEDS ORDERED: Phenergan 25 MG INJ ONE (23:09)
[2024-01-31] MEDS: Phenergan 25 MG INJ*** 12.5 MG in Sodium Chloride 0.9% 100 ML IV PRN (23:14)
[2024-02-01 05:57] LABS: Hematocrit 45.5 % (40.1-51.0); Hemoglobin 14.2 g/dL (13.7-17.5); Mean Cell Volume 82.9 fL (79.0-92.2); Mean Corpuscular Hemoglobin 25.9 pg (25.7-32.2); Mean Corpuscular Hgb Concent. 31.2 g/dL (32.3-36.5); Platelet Count 149 x10^3/uL (163-337); Red Blood Count 5.49 x10^6/uL (4.63-6.08); Red Cell Distribution Width 17.4 % (11.6-14.4); White Blood Count 6.3 x10^3/uL (4.23-9.07)
[2024-02-01 06:10] LABS: ALBUMIN 3.8 g/dL (3.5-5.0); ANION GAP 13.2 MEQ/L (5-15); BILIRUBIN,TOTAL 1.2 mg/dL (0.2-1.3); Calcium 9.1 mg/dL (8.4-10.2); Creatinine 1 1.56 mg/dL (0.66-1.25); EST GLOMERULAR FILTRATION RATE 45.5 ML/MIN; Total Protein 7.2 g/dL (6.3-8.2)
[2024-02-01] MEDS ORDERED: Docusate Sodium 100 MG PO PRN (10:58)
[2024-02-01] MEDS: Miralax Powder 17GM PACKET PO PRN (11:07)
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
[2024-02-02 05:56] LABS: Hematocrit 44.7 % (40.1-51.0); Mean Cell Volume 83.2 fL (79.0-92.2); Mean Corpuscular Hemoglobin 26.1 pg (25.7-32.2); Mean Corpuscular Hgb Concent. 31.3 g/dL (32.3-36.5); Mean Platelet Volume 10.6 fL (9.4-12.4); Platelet Count 174 x10^3/uL (163-337); Red Blood Count 5.37 x10^6/uL (4.63-6.08); Red Cell Distribution Width 17.2 % (11.6-14.4); White Blood Count 6.2 x10^3/uL (4.23-9.07)
[2024-02-02 06:02] LABS: ALBUMIN 3.8 g/dL (3.5-5.0); ANION GAP 12.6 MEQ/L (5-15); Calcium 9.2 mg/dL (8.4-10.2); Creatinine 1 1.65 mg/dL (0.66-1.25); EST GLOMERULAR FILTRATION RATE 42.5 ML/MIN; Potassium 3.8 mmol/L (3.5-5.1); Total Protein 7.1 g/dL (6.3-8.2)
[2024-02-02] MEDS ORDERED: Furosemide 100mg/10 ml Vial IV SCH (08:08)
--- NOTE | 2024-02-02 10:05 | PCM.CONS ---
Podiatry HPI - Consult Date of Consultation Date: 01/31/24 Reason for Consult: bilateral venous insufficency ulcerations Consulting Provider: WAYNE PABON DPM - [facility] History of Present Illness: 78 y/o M with h/o HFrEF, paroxysmal A-fib, recent CVA, and venous stasis dermatitis with ulcers, presents with worsening dyspnea and leg edema. Patient states he was diagnosed with idiopathic cardiomyopathy in 1999, with an EF as low as 5% at one point and was evaluated for heart transplant, although his EF has recovered somewhat from that point. Today he presents complaining of one week of progressive dyspnea, associated with worsening leg edema causing more serous weeping from her legs, as well as associated orthopnea and early satiety with mild constant nausea. He denies PND, chest pain, numbness, diaphoresis, fevers, sore throat, or dysuria. Patient states has been compliant with medications and diet. However, patient lives alone, and was brought in after family visited and noted that patient was not doing well, with some signs of cognitive impairment. They brought in his medication bottles, which showed that though there were prescribed three months ago they were still almost full. He was prescribed Keflex by his adobe layer, Dr. Angel, 10 days ago but only one pill was used. He also had an Unna boot placed by his adobe layer last week, but the patient cut it off himself. His family notes that he has been more forgetful, and they are interested in looking for more support for the patient, including possible placement. Medications & Allergies Home Medications: Home Medication List Acetaminophen 325 mg [Tylenol 325 mg] 650 mg PO Q4HPRN PRN 01/30/24 [History Confirmed 01/30/24] Acetaminophen with Codeine [Acetaminophen-Cod #3 Tablet] 1 tab PO QID PRN 01/30/24 [History Confirmed 01/30/24] Allopurinol 300 mg [Zyloprim 300 mg] 300 mg PO DAILY 01/30/24 [History Confirmed 01/30/24] Aspirin 81 gm Chew [Baby Aspirin 81 mg Chew] 81 mg PO DAILY 01/30/24 [History Confirmed 01/30/24] Cyanocobalamin (Vitamin B-12) [Vitamin B-12] 1,000 mcg SL DAILY 01/30/24 [History Confirmed 01/30/24] Empagliflozin [Jardiance] 10 mg PO DAILY 01/30/24 [History Confirmed 01/30/24] Levothyroxine Sodium 75 Mcg [Synthroid 75 Mcg] 75 mcg PO DAILY 01/30/24 [History Confirmed 01/30/24] Metoprolol Succinate 50 mg [Toprol Xl 50 MG] 50 mg PO DAILY 01/30/24 [History Confirmed 01/30/24] OLANZapine [Zyprexa] 5 mg PO HS 01/30/24 [History Confirmed 01/30/24] Ondansetron [Ondansetron Odt ] 4 mg PO Q6H PRN 01/30/24 [History Confirmed 01/30/24] Rivaroxaban [Xarelto] 20 mg PO DAILY 01/30/24 [History Confirmed 01/30/24] Sacubitril/Valsartan [Entresto 49 mg-51 mg Tablet] 1 each PO DAILY 01/30/24 [History Confirmed 01/30/24] Spironolactone 25 mg PO DAILY 01/30/24 [History Confirmed 01/30/24] Torsemide 20 mg [Demadex 20 mg] 20 mg PO DAILY 01/30/24 [History Confirmed 01/30/24] Allergies/Adverse Reactions: Allergies Allergy/AdvReac Type Severity Reaction Status Date / Time amiodarone Allergy Verified 01/30/24 19:32 dronedarone Allergy Verified 01/30/24 19:32 icosapent ethyl Allergy Verified 01/30/24 19:32 nifedipine Allergy Verified 01/30/24 19:32 Mricwor-CFM-QvI Reductase Allergy Verified 01/30/24 19:32 Inhibitor - Past Medical History Past Medical History: Yes Neurological History: Migraines, Stroke ENT History: No Pertinent History Cardiac History: Arrhythmia, Congestive Heart Failure, Deep Vein Thrombosis, High Cholesterol, Hypertension Respiratory History: CHF, Pneumonia Endocrine Medical History: Diabetes Type II, Hypothyroidism Musculoskelatal History: Arthritis GI Medical History: GERD, Hernia History: No Pertinent History Pyscho-Social History: Anxiety, Depression Male Reproductive Disorders: Prostate Problems Comment: cml leukemia, edopathic myocardia, gout, restless leg sydrome - Past Surgical History Past Surgical History: Yes Neuro Surgical History: No Pertinent History Cardiac History: Cardiac Catheterization, Internal Defibrillator, Pacemaker Respiratory Surgery: No Pertinent History GI Surgical History: Hernia Repair Genitourinary Surgical Hx: No Pertinent History Musculskeletal Surgical Hx: Orthopedic Surgery Male Surgical History: No Pertinent History Other Surgical History: carpal tunnel, cardiac ablation, left cubital tunnel release and ulnar nerve at wrist, rt total knee Significant Family History: no pertinent family hx - Social History Smoking Status: Never smoker Exposure to second hand smoke: No Alcohol: None Drug Use: none - Social Determinants of Health Will the patient participate in the screening: Yes Do you worry about a steady place to live?: No Do you have any problems with any of the following?: No known problems In the past 12 months,have you had to go without utilities?: No Have you or anyone in your house had to go without enough: No Transportation Issues: No Has anyone in your support network made you feel unsafe?: No Does the patient want assistance with any of the above?: No Physical Exam - Narrative Narrative Physical Exam: Podiatry Physical Exam Results - Labs Lab/Micro Results: Lab Results-Last 24 Hours 02/02/24 02/02/24 02/02/24 Range/Units 05:40 05:40 05:40 WBC 6.2 (4.23-9.07) x10^3/uL RBC 5.37 (4.63-6.08) x10^6/uL Hgb 14.0 (13.7-17.5) g/dL Hct 44.7 (40.1-51.0) % MCV 83.2 (79.0-92.2) fL MCH 26.1 (25.7-32.2) pg MCHC 31.3 L (32.3-36.5) g/dL RDW 17.2 H (11.6-14.4) % Plt Count 174 (163-337) x10^3/uL MPV 10.6 (9.4-12.4) fL Sodium 139 (135-145) mmol/L Potassium 3.8 (3.5-5.1) mmol/L Chloride 99 (98-107) mmol/L Carbon Dioxide 31 H (22-30) mmol/L Anion Gap 12.6 (5-15) MEQ/L BUN 35 H (9-20) mg/dL Creatinine 1.65 H (0.66-1.25) mg/dL Estimated GFR 42.5 ML/MIN Glucose 114 H (74-106) mg/dL Calcium 9.2 (8.4-10.2) mg/dL Magnesium 2.2 (1.6-2.3) mg/dL Total Bilirubin 1.00 (0.2-1.3) mg/dL AST 46 (17-59) U/L ALT 25 (0-50) U/L Alkaline Phosphatase 99 (38-126) U/L Serum Total Protein 7.1 (6.3-8.2) g/dL Albumin 3.8 (3.5-5.0) g/dL Microbiology 01/30/24 20:42 Wound Culture - Preliminary Leg - Right Lower NO GROWTH TO DATE 01/31/24 Unknown Wound Culture - Preliminary Leg - Right Lateral NO GROWTH TO DATE - Radiology Impressions Radiology Exams & Impressions: Radiology Procedures Category Date Time Status ARTERIAL BILAT LOWER EXTREMITY [US] Urgent Exams 02/03/24 10:23 Ordered VENOUS BILATERAL EXTREMITY [US] Urgent Exams 01/31/24 10:17 Completed Assessment/Plan (1) CHF exacerbation Current Visit: Yes Status: Acute Code(s): I50.9 - HEART FAILURE, UNSPECIFIED (2) Chronic cutaneous venous stasis ulcer Current Visit: Yes Status: Acute Assessment & Plan: Venous dopplers obtained. Negative findings for occlusions of deep or superficial veins Arterial dopplers ordered. Will be obtained saturday to better assess wound healing potential Unna boots placed to the bilateral lower extremity for venous insufficency ulcerations Cultures obtained awaiting results. Abx started by medicine team. will follow. Will follow up saturday. 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
[2024-02-02] MEDS: Lasix 40 MG/4 ML IV SCH (11:08)
[2024-02-02] MEDS: CEFAZOLIN 2 GM/100 ML NaCl 2 GM/100 ML IVPB IV SCH (12:57)
[2024-02-02] MEDS ORDERED: CEFAZOLIN 2 GM/100 ML NaCl IV SCH (15:00)
[2024-02-03 05:21] LABS: Hematocrit 45.9 % (40.1-51.0); Hemoglobin 14.2 g/dL (13.7-17.5); Mean Corpuscular Hemoglobin 25.7 pg (25.7-32.2); Mean Corpuscular Hgb Concent. 30.9 g/dL (32.3-36.5); Mean Platelet Volume 10.1 fL (9.4-12.4); Platelet Count 178 x10^3/uL (163-337); Red Blood Count 5.53 x10^6/uL (4.63-6.08); Red Cell Distribution Width 17.2 % (11.6-14.4); White Blood Count 6.2 x10^3/uL (4.23-9.07)
[2024-02-03 05:37] LABS: ALBUMIN 3.9 g/dL (3.5-5.0); BILIRUBIN,TOTAL 0.8 mg/dL (0.2-1.3); Creatinine 1 1.6 mg/dL (0.66-1.25); EST GLOMERULAR FILTRATION RATE 44.1 ML/MIN; Potassium 4.1 mmol/L (3.5-5.1); Total Protein 7.2 g/dL (6.3-8.2)
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
[2024-02-03 07:18] VITALS: RESP 16
[2024-02-03 11:41] VITALS: BP 108/68; PULSE 88; TEMP 97.9; O2SAT 97
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
[2024-02-03] MEDS: KEFLEX 500 MG PO SCH (13:36)
--- NOTE | 2024-02-03 13:58 | XRAY ---
Indication: Venous stasis ulcers. 2-dimensional sonogram and color Doppler imaging major arteries left and right leg performed. Comparison: None Examination right leg demonstrates mild scattered arteriosclerotic disease in the common femoral, deep femoral, superficial femoral, popliteal, posterior tibial, and dorsal pedal arteries. Arterial waveforms are multiphasic throughout right leg. Examination left leg also demonstrates minimal scattered arteriosclerotic disease in the common femoral, deep femoral, superficial femoral, and popliteal. Mild scattered disease in the remaining posterior tibial and dorsal pedal arteries.. Arterial waveforms are monophasic in posterior tibial artery. Remaining left leg and toe waveforms are multiphasic. Impression: Minimal/mild scattered arteriosclerotic disease bilaterally. Negative for critical stenosis/obstruction.
[2024-02-03] MEDS ORDERED: CLINDAMYCIN-D5W 600 MG/50 ML*** 600 MG/50 ML BAG IV SCH (14:00)
== END 2024-02-03 14:19 | DRG 292 ==
LOC: ED 19:17 → OBSVTOIN 01-31 00:36 → MED SURG 01-31 00:36
PROVIDERS: ADMIT Internal Medicine; ATTEND Internal Medicine
PROC: 2W1MX6Z Compression of Left Lower Extremity using Pressure Dressing (ICD-10-PCS; principal; 2024-01-31)
PROC: 2W1LX6Z Compression of Right Lower Extremity using Pressure Dressing (ICD-10-PCS; 2024-01-31)
DX: I50.23 Acute on chronic systolic (congestive) heart failure (principal); I48.20 Chronic atrial fibrillation, unspecified; L97.909 Non-pressure chronic ulcer of unspecified part of unspecified lower leg with unspecified severity; N17.9 Acute kidney failure, unspecified; N18.9 Chronic kidney disease, unspecified; I83.009 Varicose veins of unspecified lower extremity with ulcer of unspecified site; F09 Unspecified mental disorder due to known physiological condition; R79.89 Other specified abnormal findings of blood chemistry; R06.02 Shortness of breath; E03.9 Hypothyroidism, unspecified; E66.9 Obesity, unspecified; R60.0 Localized edema; Z79.899 Other long term (current) drug therapy; Z79.01 Long term (current) use of anticoagulants; Z86.73 Personal history of transient ischemic attack (TIA), and cerebral infarction without residual deficits
CPT/HCPCS: 29580; 36000; 36415; 71045; 74176; 80053; 80307; 82565; 83605; 83735; 83880; 84439; 84443; 84484; 84520; 85025; 85027; 87070; 93005; 93306; 93925; 93970; 96374; 99285; Q3014; 87077; 87186; 99223; J0690; J0696; J1940; J2405; J2550; A9270-GY